=== PATIENT | male | born 1950 | race Caucasian/White ===

== ENCOUNTER → 2017-12-21 | Outpatient (CLI) | payer BC ==
[~2017-12-21] VITALS: Ht 177.8 cm; Wt 61.2 kg
[~2017-12-21] MED LIST: ARNUITY ELLIPT50 MCG INH; ATORVASTATIN CA40 MG PO; COREG25 M1 PO; COUMADIN7.5 MG PO; IMDUR 30 MG TAB30 M1 PO; KEFLEX500 M1 PO; LISINOPRIL10 MG PO; STIOLTO RESPIMAT4 GM INH
[2017-12-21 08:51] LABS: HEMATOCRIT 49.3 % (42.0-52.0); HEMOGLOBIN 16.4 gm/dL (14.0-18.0); MCHC 33.2 g/dL (28.0-37.0); MCV 93.5 fL (80.0-100.0); MPV 8.7 fl. (7.2-11.1); RBC 5.27 mil/uL (4.50-6.00); RDW-CV 14.7 % (10.5-14.5); WBC 5.7 thou/uL (4.0-11.0)
[2017-12-21 08:56] VITALS: BP 124/76
[2017-12-21 09:16] LABS: APTT 45.7 Seconds (25.0-31.3); PROTIME 30.9 Seconds (9.20-11.50)
[2017-12-21 09:17] LABS: ANION GAP 1 mmol/L (7-16); BUN 8 mg/dL (7-18); CALCIUM 8.5 mg/dL (8.5-10.1); CHLORIDE 99 mmol/L (98-107); CO2 33 mmol/L (21-32); CREATININE 0.7 mg/dL (0.6-1.3); GLUCOSE 87 mg/dL (70-99); POTASSIUM 4.3 mmol/L (3.5-5.1); SODIUM 133 mmol/L (136-145)
[2017-12-21 09:22] LABS: ALBUMIN 3.7 g/dL (3.4-5.0); ALKALINE PHOSPHATASE 82 U/L (46-116); CHOLESTEROL 144 mg/dL (<200); HDL CHOLESTEROL 66 mg/dL (>40); LDL CHOLESTEROL 71 mg/dL (<100); SGOT 28 U/L (15-37); SGPT 35 U/L (30-65); TC:HDL 2.2 Ratio (Not establshd); TOTAL BILIRUBIN 0.4 mg/dL (<0.1-1.0); TOTAL PROTEIN 7.3 g/dL (6.4-8.2); TRIGLYCERIDE 36 mg/dL (<150); VLDL 7 mg/dL (<40)
[2017-12-21 09:23] LABS: SERUM ASSESSMENT Clear
[2017-12-21 10:30] VITALS: BP 119/75
[2017-12-21 10:45] VITALS: BP 129/75
[2017-12-21 11:00] VITALS: BP 129/70
[2017-12-21 11:15] VITALS: BP 130/69
--- NOTE | 2017-12-21 17:29 | EKG ---
[place] [address] ELECTROCARDIOGRAM REPORT Name: ROLAND PERKINS Room: [facility]#: [id number] Admission: 12/21/17 Attend Phys: Montana Villa MD Discharge: Date of : 54 Report #: [id number] THIS REPORT FOR: //name// [facility] Test Date: 2017-12-21 Test Time: 09:02:58 Pat Name: ROLAND PERKINS Department: Room: Gender: M Manager Quantitative: : 1950 Requested By: Montana Villa Order Number: [id number] Reading MD: Roland Murray Measurements Intervals [place] Rate: 66 P: 32 AK: 150 QRS: 47 QRSD: 103 T: -81 QT: 422 QTc: 443 Interpretive Statements Sinus rhythm Probable left ventricular hypertrophy Nonspecific T abnormalities, lateral leads No previous ECG available for comparison Electronically Signed On 12-21-2017 17:29:31 CDT by Roland Murray [email or web address] <ELECTRONICALLY SIGNED> By: Roland Murray MD, [facility] 12/21/17 1729 09 1 Roland Murray MD, FACC /EPI
--- NOTE | 2017-12-28 11:41 | CARD ---
[address] [address] CARDIAC CATH REPORT Name: MARIA DE JESUS PERKINS Room: [facility]#: [id number] Admission: 12/21/17 Attend Phys: Montana Villa MD Discharge: Date of : 54 Report #: [id number] THIS REPORT FOR: //name// APPROVED REPORT Study performed: 12/21/2017 09:04:05 Patient Status: Out-Patient Room #: Exam: dual-chamber ICD generator change. Indications: dual-chamber ICD generator at elective replacement. The patient is a 67 year-old male with a history of ischemic cardiomyopathy status post ICD placement for primary prevention. Patient Info Last EF%: 30-35% Date: NYHA Heart Class: II Reason for implant: Primary prevention Implanted Devices: Biotronik Itrevia 7 DRT DF1, model #245773, serial #[id number] dual-chamber ICD pulse generator Explanted Devices: Medtronic Virtuoso 2 , model number D274 DRG, serial number [id number] dual-chamber ICD generator. Procedure After informed consent was obtained the patient was brought to the interventional radiology lab. The area of the right chest was prepped and draped in sterile fashion. Local anesthesia was achieved with 1% lidocaine. Next after an incision was made over the existing generator the generator was explanted using electrocautery and blunt dissection. The device was detached from the ICD ventricular and atrial lead. The device pocket was flushed with antibiotic solution. Next a new dual-chamber ICD lead was attached to the atrial and pacing ICD ventricular leads. The redundant leads and generator were placed within the device pocket. The deep tissues were closed with interrupted stitches of 2-0 Vicryl. The skin incision was then closed with a single subcuticular stitch of 4-0 Vicryl. Several Steri-Strips were placed across the incision. A sterile Telfa dressing was then covered with Tegaderm. The patient tolerated procedure well [place] [address] CARDIAC CATH REPORT Name: MARIA DE JESUS PERKINS Room: [facility]#: [id number] Admission: 12/21/17 Attend Phys: Montana Villa MD Discharge: Date of : 54 Report #: [id number] Slow VT detection rate 154 bpm, fast VT detection rate 176 bpm and VF detection rate to 222 bpm. Slow VF therapy monitor only. Fast VT therapy antitachycardia pacing 6 followed by 40 J shock times a day. VF therapy antitachycardia pacing times one followed by 40 J shock 8. Pacing mode AAIR. Lower rate 60 bpm. Upper tracking rate 130 bpm. Conclusion 1. Ischemic cardiomyopathy. 2. ICD in situ and at elective replacement. 3. Successful ICD generator replacement. Recommendations 1. Follow-up site check in one week. 2. Follow-up ICD interrogation one month. <ELECTRONICALLY SIGNED> By: Montana Villa MD, FACC 12/28/17 1141 1141 1141Michaefrankie Villa MD, FACC /INF
--- NOTE | 2017-12-28 17:20 | H ---
[place] [address] HISTORY AND PHYSICAL Name: MARIA DE JESUS PERKINS Room: [facility]#: [id number] Admission: 12/21/17 Attend Phys: Montana Villa MD Discharge: Date of : 54 Report #: [id number] THIS REPORT FOR: //name// CC: Maria De Jesus Murray MD [facility] Tia Villa INDICATION: Admission for ICD generator change. HISTORY OF PRESENT ILLNESS: The patient is a pleasant 67-year-old gentleman with ischemic cardiomyopathy. He had a defibrillator placed for primary prevention. His ICD has reached elective replacement. He is without specific cardiac complaint at this time. PAST MEDICAL HISTORY: 1. Bradycardia. 2. Congestive heart failure. 3. Chronic obstructive pulmonary disease. 4. Coronary artery disease. 5. Ischemic cardiomyopathy. 6. History of cerebrovascular accident. 7. Protein C deficiency. 8. Chronic systolic heart failure. PAST SURGICAL HISTORY: Defibrillator placement in 2011. FAMILY HISTORY: Noncontributory. SOCIAL HISTORY: The patient quit smoking in 2017. He does not drink alcohol. ALLERGIES: SULFA. CURRENT MEDICATIONS: Atorvastatin, carvedilol, Advair, Imdur, Prinivil, warfarin. PHYSICAL EXAMINATION: VITAL SIGNS: Blood pressure 118/78, pulse 77. GENERAL: This is a pleasant gentleman who is in no distress. HEAD: Normocephalic, atraumatic. Extraocular muscles intact. Mucous membranes moist. NECK: Shows no jugular venous distention. There are no carotid bruits. CHEST: Reveals clear lung diamond. CARDIAC: Reveals regular rhythm without gallop or murmur. ABDOMEN: Reveals normal bowel sounds. The abdomen is soft, nontender. EXTREMITIES: Shows no clubbing, cyanosis or edema. Peripheral pulses palpable ____. [place] [address] HISTORY AND PHYSICAL Name: MARIA DE JESUS PERKINS Room: [facility]#: [id number] Admission: 12/21/17 Attend Phys: Montana Villa MD Discharge: Date of : 54 Report #: [id number] SKIN: Warm and dry. IMPRESSION AND RECOMMENDATIONS: 1. Ischemic cardiomyopathy, presently well compensated. 2. Status post ICD placement for primary prevention. ICD generator elective replacement. The patient is being admitted for ICD generator change. 3. Coronary artery disease, presently stable. 4. Stable carotid vascular disease. 5. History of protein C deficiency. 6. Hyperlipidemia. Continue statin agent. <ELECTRONICALLY SIGNED> By: Montana Villa MD, FACC 12/28/17 1720 1127 [facility] Sera Villa MD, FACC /nt
== END | disposition home or self-care (01) ==
LOC: M.CL 08:29
PROVIDERS: Internal Medicine Cardiovascular Disease
DX: Z45.02 Encounter for adjustment and management of automatic implantable cardiac defibrillator (principal); I25.5 Ischemic cardiomyopathy; I50.22 Chronic systolic (congestive) heart failure; I25.10 Atherosclerotic heart disease of native coronary artery without angina pectoris; E78.5 Hyperlipidemia, unspecified; J44.9 Chronic obstructive pulmonary disease, unspecified; Z87.891 Personal history of nicotine dependence; Z79.01 Long term (current) use of anticoagulants; Z79.899 Other long term (current) drug therapy; Z88.2 Allergy status to sulfonamides; Z95.1 Presence of aortocoronary bypass graft; Z98.890 Other specified postprocedural states; Z82.49 Family history of ischemic heart disease and other diseases of the circulatory system

== ENCOUNTER 2019-07-19 07:17 | Inpatient (IN) | payer OTHER ==
[~2019-07-19] VITALS: Ht 180.3 cm; Wt 78.6 kg
[~2019-07-19 07:17] MED LIST changes: -ATORVASTATIN CA40 MG PO; -COREG25 M1 PO; +COREG6.25 MG PO; +COUMADIN 5 MG TA5 M1 PO; -COUMADIN7.5 MG PO; +LIPITOR80 MG PO
[2019-07-19 09:36] VITALS: BP 113/61
[2019-07-19 10:39] LABS: INR 2.9; PROTIME 28.6 Seconds (9.20-11.50)
[2019-07-19 10:44] LABS: CALCIUM 8.9 mg/dL (8.5-10.1); CREATININE 0.7 mg/dL (0.6-1.3); POTASSIUM 4.3 mmol/L (3.5-5.1)
[2019-07-19 10:49] LABS: ALBUMIN 3.4 g/dL (3.4-5.0); DIRECT BILIRUBIN 0.1 mg/dL (<0.1-0.3); TOTAL BILIRUBIN 0.4 mg/dL (<0.1-1.0); TOTAL PROTEIN 6.8 g/dL (6.4-8.2)
[2019-07-19 12:00] VITALS: BP 104/68
--- NOTE | 2019-07-19 15:39 | EKG ---
[place] [address] ELECTROCARDIOGRAM REPORT Name: ROLAND PERKINS Room: [address] ADM IN ..#: [id number] Admission: 07/19/19 Attend Phys: Roland Murray MD Discharge: Date of : 54 Date of Service: 07/19/19 [facility] Report #: [id number] THIS REPORT FOR: //name// [facility] Test Date: 2019-07-19 Test Time: 10:07:27 Pat Name: ROLAND PERKINS Department: Room: [address] Gender: M Design Checker: : 1950 Requested By: Roladn Murray Order Number: [id number] Reading MD: Roland Murray Measurements Intervals [place] Rate: 97 P: 20 CO: 158 QRS: 14 QRSD: 121 T: QT: 390 QTc: 496 Interpretive Statements Sinus arrhythmia and pac's Paired ventricular premature complexes Nonspecific intraventricular conduction delay Nonspecific T abnormalities, lateral leads Compared to ECG 12/21/2017 09:02:58 Ventricular and supraventricular premature complex(es) now present T-wave abnormality still present Electronically Signed On 07-19-2019 15:37:25 CDT by Roland Murray [email or web address] <ELECTRONICALLY SIGNED> By: Roland Murray MD, FACC 07/19/19 1537 1007 1007 Roland Murray MD, FAC /EPI
--- NOTE | 2019-07-19 16:55 | H ---
[place] [address] HISTORY AND PHYSICAL Name: ROLAND PERKINS Room: [address] IN ..#: [id number] Admission: 07/19/19 Attend Phys: Roland Murray MD, F Discharge: Date of : 54 Report #: [id number] THIS REPORT FOR: //name// cc: Tia Saha MD, Melanie MD ~ THIS REPORT FOR: //name// CC: Roland Saha MD DATE OF SERVICE: 07/19/2019 CARDIOLOGY HISTORY AND PHYSICAL PRIMARY CARE PHYSICIAN: Tia Saha MD in [place], [place]. HISTORY OF PRESENT ILLNESS: The patient is a 69-year-old white male who was electively admitted today to [facility] for initiation of amiodarone therapy. The patient has a long history of an ischemic cardiomyopathy. He previously had a myocardial infarction treated with balloon angioplasty at [facility] years ago. His last nuclear stress test a year ago showed a fixed defect, but no reversible ischemia. The patient's last echocardiogram showed an ejection fraction of 30%. Because of his ischemic cardiomyopathy, he eventually underwent implantation of defibrillator by Dr. Mathews at [facility] years ago. Unfortunately, at the time of the placement of the defibrillator, he developed pericardial tamponade and had a pericardial window placed. He underwent a generator change by Dr. Villa several years ago at [facility]. He apparently has never had a discharge of his defibrillator, which was checked by phone. He has a history of atrial fibrillation in the past, but apparently was never cardioverted. He was on sotalol in the past, which was discontinued because of congestive heart failure. The patient was actually admitted to [facility] this past year with retroperitoneal bleed when his INR was 3.7. The patient was last admitted in May of this year with shortness of breath. Recently, the patient complained of his heart pounding. Interrogation of his defibrillator showed episodes of a narrow complex tachycardia suggestive of atrial flutter at 160 beats per minute. It was recommended the patient be admitted this time for initiation of amiodarone therapy. He denies any increased shortness of breath, orthopnea, edema. He does occasionally have chest pain, although it is nonexertional and does not last very long. There is no radiation of the pain. He has had no bleeding. He has had no syncope, fever, or chronic cough. PAST MEDICAL HISTORY: Otherwise significant for protein C deficiency. He had a previous TIA. Previous carotid Doppler study showed mild stenosis. He has a history [place] [address] HISTORY AND PHYSICAL Name: ROLAND PERKINS Room: [address] IN [facility]#: [id number] Admission: 07/19/19 Attend Phys: Roland Murray MD, F Discharge: Date of : 54 Report #: [id number] CURRENT MEDICATIONS: Consist of an inhaler, Lipitor, Entresto, spironolactone, warfarin. ALLERGIES: HE HAS ALLERGY TO PENICILLIN AND SULFA DRUGS. FAMILY HISTORY: His mother had heart disease. SOCIAL HISTORY: He is . He and his live in [place], [place]. Used to smoke 3 packs of cigarettes a day, quit in February. No alcohol abuse, no illicit drug use. REVIEW OF SYSTEMS: No history of liver disease, kidney disease or cancer. He has dry skin. No psychiatric illness. PHYSICAL EXAMINATION: GENERAL: Revealed a middle-aged male, appeared in no distress. VITAL SIGNS: Blood pressure 110/60, pulse is 60. He is afebrile. HEENT: He was anicteric. Conjunctivae pink. Mucous membranes moist. NECK: Veins nondistended. No carotid bruits. Neck supple. CHEST: Revealed expiratory wheezes. CARDIOVASCULAR: Regular rate and rhythm, no murmur. ABDOMEN: Soft. EXTREMITIES: Had no edema. Dorsalis pedis pulse 2+ bilaterally. SKIN: Warm and dry. NEUROLOGIC: Nonfocal. LABORATORY DATA: His ECG, sinus rhythm, occasional atrial paced beats, PVC. IMPRESSION AND RECOMMENDATIONS: 1. Paroxysmal atrial arrhythmias. The patient was taken off of sotalol because of shortness of breath. Recommend starting amiodarone. 2. Cardiomyopathy. The patient is on Entresto. I would recommend adding Coreg. 3. Previous transient ischemic attack. 4. Protein C deficiency. The patient on warfarin, I would continue, maintain INR of 2-3. 5. Hyperlipidemia. The patient is on a statin drug. 6. Previous implantation of defibrillator. No recent discharges. 7. Previous tobacco abuse. 8. Chronic obstructive pulmonary disease. <ELECTRONICALLY SIGNED> By: oRland Murray MD, FACC 07/19/19 1655 0959 1039Davipatrice Murray MD, [facility] /nt
[2019-07-19 20:21] VITALS: BP 107/73
[2019-07-20] VITALS: BP 112/72
[2019-07-20 04:00] VITALS: BP 118/63
[2019-07-20 05:29] LABS: HEMATOCRIT 45.3 % (42.0-52.0); HEMOGLOBIN 15.2 gm/dL (14.0-18.0); MCH 30.4 pg (26.0-34.0); MCHC 33.6 g/dL (28.0-37.0); MCV 90.4 fL (80.0-100.0); MPV 9.4 fl. (7.2-11.1); NUCLEATED RBCS 0 /100WBC; PLATELET COUNT* 139 thou/uL (150-400); RBC 5.01 mil/uL (4.50-6.00)
[2019-07-20 05:35] LABS: INR 2.8; PROTIME 27.8 Seconds (9.20-11.50)
[2019-07-20 05:38] LABS: CHOLESTEROL 138 mg/dL (<200); HDL CHOLESTEROL 57 mg/dL (>40); LDL CHOLESTEROL 72 mg/dL (<100); TC:HDL 2.4 Ratio (Not establshd); TRIGLYCERIDE 47 mg/dL (<150); VLDL 9 mg/dL (<40)
[2019-07-20 05:45] LABS: SERUM ASSESSMENT CLEAR
[2019-07-20 07:05] LABS: ABSOLUTE BASOPHILS 0.1 thou/uL (0.0-0.2); ABSOLUTE EOSINOPHILS 0.6 thou/uL (0.0-0.7); ABSOLUTE LYMPHOCYTES 2.4 thou/uL (0.8-5.3); ABSOLUTE MONOCYTES 0.4 thou/uL (0.0-1.2); ABSOLUTE NEUTROPHILS 2.5 thou/uL (1.6-8.1); ATYPICAL LYMPHS 6 %; PLATELET ESTIMATE ADEQUATE
[2019-07-20 07:47] VITALS: BP 109/66
[2019-07-20 12:19] VITALS: BP 94/52
--- NOTE | 2019-07-20 13:30 | EKG ---
[place] [address] ELECTROCARDIOGRAM REPORT Name: ROLAND PERKINS Room: [address] ADM IN [facility].#: [id number] Admission: 07/19/19 Attend Phys: Roland Murray MD Discharge: Date of : 54 Date of Service: 07/20/19 0856 Report #: [id number] THIS REPORT FOR: //name// [facility] Test Date: 2019-07-20 Test Time: 08:56:54 Pat Name: ROLAND PERKINS Department: Room: [address] Gender: M Supervisor Real Estate Office: : 1950 Requested By: Roland Murray Order Number: [id number] Reading MD: Roland Murray Measurements Intervals [place] Rate: 73 P: 53 [place]: 155 QRS: 48 QRSD: 95 T: QT: 428 QTc: 472 Interpretive Statements Sinus rhythm Probable left atrial enlargement Borderline T abnormalities, inferior leads Baseline wander in lead(s) V1 Compared to ECG 07/19/2019 10:07:27 Sinus arrhythmia no longer present Ventricular premature complex(es) no longer present Electronically Signed On 07-20-2019 13:29:11 CDT by Roland Murray [email or web address] <ELECTRONICALLY SIGNED> By: Roland Murray MD, FAC 07/20/19 1329 0856 0856 Roland Murray MD, FAC /EPI
--- NOTE | 2019-07-20 14:55 | 2DMMODE ---
[place] [address] 2 D/M-MODE ECHOCARDIOGRAM Name: MARIA DE JESUS PERKINS Room: [address] IN .[place].#: [id number] Admission: 07/19/19 Attend Phys: Maria De Jesus Murray MD Discharge: Date of : 54 Date of Service: 07/20/19 1454 Report #: [id number] THIS REPORT FOR: cc: Tia Saha MD, Melanie MD Blick, David R. MD [facility] ~ APPROVED REPORT Study performed: 07/20/2019 13:21:27 EXAM: Comprehensive 2D, Doppler, and color-flow Echocardiogram Patient Location: In-Patient Room #: [facility] Status: routine BSA: 1.99 HR: 76 bpm BP: 109/66 mmHg Rhythm: NSR Other Information Study Quality: Good Indications Atrial Fibrillation 2D Dimensions IVSd: 9.98 (7-11mm) LVOT Diam: 22.07 (18-24mm) LVDd: 61.75 mm PWd: 9.14 (7-11mm) Ascending Ao: 35.05 (22-36mm) LVDs: 54.50 (25-40mm) Aortic Root: 34.79 mm Volumes Left Atrial Volume (Systole) LA ESV Index: 31.00 mL/m2 Aortic Valve AoV Peak Akash.: 1.27 m/s AO Peak Gr.: 6.46 mmHg LVOT Max P.70 mmHg AO Mean Gr.: 3.47 mmHg LVOT Mean P.79 mmHg LVOT Max V: 0.65 m/s AO V2 VTI: 22.01 cm LVOT Mean V: 0.40 m/s PHYLLIS (VTI): 2.24 cm2 LVOT V1 VTI: 12.89 [place] [address] 2 D/M-MODE ECHOCARDIOGRAM Name: MARIA DE JESUS PERKINS Room: [address] IN ..#: [id number] Admission: 07/19/19 Attend Phys: Maria De Jesus Murray MD Discharge: Date of : 54 Date of Service: 07/20/19 1454 Report #: [id number] Mitral Valve E/A Ratio: 1.41 MV Decel. Time: 186.78 ms MV E Max Akash.: 0.89 m/s MV PHT: 54.17 ms MVA (PHT): 4.06 cm2 TDI E/Lateral E': 12.71 E/Medial E': 9.89 Medial E' Akash.: 0.09 m/s Lateral E' Akash.: 0.07 m/s Pulmonary Valve PV Peak Akash.: 0.71 m/s PV Peak Gr.: 1.99 mmHg Tricuspid Valve RAP Estimate: 5.00 mmHg TR Peak Gr.: 30.13 mmHg RVSP: 35.00 mmHg PA Pressure: 35.00 mmHg Left Ventricle Left ventricle is mildly dilated. There is global hypokinesis of the left ventricle. There is normal left ventricular wall thickness. Left ventricular systolic function is severely decreased. LVEF is 25-30%. Grade IV - fixed restrictive diastolic dysfunction. Right Ventricle Right ventricle is dilated. The right ventricular systolic function is normal. Pacemaker lead is present in the right ventricle. Atria Left atrium is mildly dilated. Right atrium is dilated. Aortic Valve The aortic valve is normal in structure. No aortic regurgitation is present. There is no aortic valvular stenosis. Mitral Valve The mitral valve is normal in structure. Mild mitral regurgitation. No evidence of mitral valve stenosis. Tricuspid Valve The tricuspid valve is normal in structure. Trace tricuspid regurgitation. estimated pa pressure 45 [place] [address] 2 D/M-MODE ECHOCARDIOGRAM Name: MARIA DE JESUS PERKINS Room: [address] IN [facility]#: [id number] Admission: 07/19/19 Attend Phys: Maria De Jesus Murray MD Discharge: Date of : 54 Date of Service: 07/20/19 1454 Report #: [id number] Pulmonic valve is not well visualized. There is trace pulmonic valvular regurgitation. Great Vessels The aortic root is normal in size. IVC is normal in size and collapses >50% with inspiration. Pericardium There is no pericardial effusion. <Conclusion> Left ventricle is mildly dilated. LVEF is 25-30%. Left atrium is mildly dilated. Mild mitral regurgitation. Trace tricuspid regurgitation. estimated pa pressure 45 mm Hg <ELECTRONICALLY SIGNED> By: Maria De Jesus Murray MD, FACC 07/20/19 1454 1454 1454 Maria De Jesus Murray MD, FACC /INF
[2019-07-20 16:38] VITALS: BP 99/68
[2019-07-20 20:00] VITALS: BP 139/86
[2019-07-21] VITALS: BP 115/77
[2019-07-21 03:50] VITALS: BP 115/68
[2019-07-21 05:07] LABS: INR 1.7; PROTIME 16.8 Seconds (9.20-11.50)
[2019-07-21 08:00] VITALS: BP 117/71
--- NOTE | 2019-07-21 10:59 | EKG ---
[place] [address] ELECTROCARDIOGRAM REPORT Name: ROLAND PERKINS Room: [address] ADM IN [facility].#: [id number] Admission: 07/19/19 Attend Phys: Roland Murray MD Discharge: Date of : 54 Date of Service: 07/21/19 0838 Report #: [id number] THIS REPORT FOR: //name// [facility] Test Date: 2019-07-21 Test Time: 08:38:15 Pat Name: ROLAND PERKINS Department: Room: [address] Gender: M Housekeeper Manager: : 1950 Requested By: Roland Murray Order Number: [id number] Reading MD: Roland Murray Measurements Intervals [place] Rate: 78 P: 38 [place]: 174 QRS: 52 QRSD: 109 T: 64 QT: 415 QTc: 473 Interpretive Statements Sinus rhythm Ventricular premature complex Probable left atrial enlargement Borderline T wave abnormalities Baseline wander in lead(s) V1,V2 Compared to ECG 07/20/2019 08:56:54 Ventricular premature complex(es) now present T-wave abnormality still present Electronically Signed On 07-21-2019 10:57:44 CDT by Roland Murray [email or web address] <ELECTRONICALLY SIGNED> By: Roland Murray MD, FACC 07/21/19 1057 7 7 Roland Murray MD, [facility] /EPI
[2019-07-21] MEDS ORDERED: ENTRESTO 24 MG1 EACH PO (12:24)
[2019-07-21] MEDS ORDERED: SPIRONOLACTONE25 MG PO (12:25)
[2019-07-21] MEDS ORDERED: PACERONE200 MG PO (12:30)
[2019-07-21 12:32] VITALS: BP 115/68
--- NOTE | 2019-07-21 15:17 | D ---
[address] [address] DISCHARGE SUMMARY Name: MARIA DE JESUS PERKINS Room: [address] IN M.R.#: [id number] Admission: 07/19/19 Attend Phys: Maria De Jesus Murray MD, F Discharge: 07/21/19 Date of : 54 Report #: [id number] THIS REPORT FOR: //name// cc: Tia Saha MD, Melanie MD ~ THIS REPORT FOR: //name// CC: Maria De Jesus Saha MD DATE OF SERVICE: 07/21/2019 DISCHARGE DIAGNOSES: 1. Atrial arrhythmias. 2. Chronic systolic heart failure. 3. Coronary artery disease. 4. Protein C deficiency. 5. Hyperlipidemia. 6. Chronic obstructive pulmonary disease. 7. Previous tobacco abuse. CONSULTANTS: None. PROCEDURES: None HISTORY OF PRESENT ILLNESS: The patient is a 69-year-old white male who was admitted for initiation of amiodarone therapy. The patient apparently had a myocardial infarction treated with balloon angioplasty at [facility] many years ago. His last nuclear stress test a year ago showed a fixed defect, but no reversible ischemia. His last echocardiogram showed an ejection fraction of 30%. Because of his ischemic cardiomyopathy, he eventually underwent implantation of defibrillator by Dr. Mathews. He underwent a generator change 2 years ago. He has never had a discharge of his defibrillator, which was checked from home. He has a history of atrial fibrillation in the past, but never was cardioverted. He was on sotalol in the past. He was admitted to [facility] this May with retroperitoneal bleed. His INR was 3.7. He was taken apparently off the sotalol because of shortness of breath. Interrogation of his defibrillator recently showed episodes of a tachycardia that appeared to be narrow complex at 280 beats per minute consistent with atrial flutter. It is recommended that the patient be admitted this time for initiation of amiodarone therapy. He denied any recent increased shortness of breath, chest pain, edema or bleeding. PAST MEDICAL HISTORY: Significant for protein C deficiency. He [place] [address] DISCHARGE SUMMARY Name: MARIA DE JESUS PERKINS Room: [address]#: [id number] Admission: 07/19/19 Attend Phys: Maria De Jesus Murray MD, F Discharge: 07/21/19 Date of : 54 Report #: [id number] CURRENT MEDICATIONS: Consist of ProAir inhaler, atorvastatin, Entresto, spironolactone, warfarin. ALLERGIES: HE HAS ALLERGY TO PENICILLIN. PHYSICAL EXAMINATION: GENERAL: Revealed an elderly male, appeared in no acute distress. VITAL SIGNS: He had a blood pressure of 120/60, pulse 60. He was afebrile. HEENT: He is anicteric. Conjunctivae anicteric. LUNGS: He had expiratory wheezes. CARDIAC: Regular rate and rhythm. ABDOMEN: Soft. EXTREMITIES: Had no edema. SKIN: Cool and dry. DIAGNOSIS STUDIES: His ECG on admission showed a sinus rhythm, occasional PAC and PVC, nonspecific T-wave changes. He had an echocardiogram during his hospitalization that showed an ejection fraction of 30%. His x-rays showed cardiomegaly, defibrillator in place, some interstitial fibrosis noted. LABORATORY DATA: His lab work, sodium 137, potassium 4.3, creatinine 0.7, glucose 91. Liver function studies were normal. Cholesterol 138, triglyceride 47, HDL 57, LDL 72. TSH 1.5. His INR on admission was 2.9. White blood cell count 6.0, hemoglobin 15.2. HOSPITAL COURSE: The patient was admitted to a monitored bed. He was started on amiodarone 600 mg to take every 12 hours. He had no significant complaints at this time. At the time of discharge, the patient is ambulating, had no further complaints. His vital signs at time of discharge, he had a blood pressure of 110/70, pulse 60. On the monitor, he remained in sinus rhythm, occasional PVC. There were episodes of atrial paced beats noted. He was discharged on amiodarone 400 mg twice a day for 2 weeks. He was then to decrease the dose to 400 mg once a day. He was to continue Lipitor and he was taking 80 mg a day. Since he is no longer on sotalol, he was started back on carvedilol 6.25 mg twice a day, Flonase nasal spray, AeroBid treatments. He was taken off of isosorbide. He was to continue Entresto twice a day, spironolactone 25 mg a day, warfarin was decreased to 5 mg a day. He was to check his INR at home every 2 days. Maintain an INR of 2-3. He was discharged to return to care of Dr. Saha for routine medical care. He continues to be seen in the pulmonary clinic. I plan on seeing him in Cardiology Clinic in [place] on 09/06/2019. His prognosis is guarded due to his ischemic cardiomyopathy. He will continue to have [place] [address] DISCHARGE SUMMARY Name: MADDIE,MARIA DE JESUS Mcgregor Room: [address] IN [facility]#: [id number] Admission: 07/19/19 Attend Phys: Maria De Jesus Murray MD, F Discharge: 07/21/19 Date of : 54 Report #: [id number] with his transmitter. I did recommend he start an exercise program and refrain from smoking. <ELECTRONICALLY SIGNED> By: Maria De Jesus Murray MD, FACC 07/21/19 1517 1131 [id number] Murray MD, FACC /nt
== END 2019-07-21 13:14 | disposition home or self-care (01) | DRG 309 ==
LOC: M.2W 07:17
PROVIDERS: ADMIT Internal Medicine Cardiovascular Disease
DX: I48.0 Paroxysmal atrial fibrillation (principal); D68.59 Other primary thrombophilia; I50.22 Chronic systolic (congestive) heart failure; I42.9 Cardiomyopathy, unspecified; I25.10 Atherosclerotic heart disease of native coronary artery without angina pectoris; E54 Ascorbic acid deficiency; E78.5 Hyperlipidemia, unspecified; J44.9 Chronic obstructive pulmonary disease, unspecified; Z87.891 Personal history of nicotine dependence; Z95.810 Presence of automatic (implantable) cardiac defibrillator; Z79.899 Other long term (current) drug therapy; I25.2 Old myocardial infarction; Z86.73 Personal history of transient ischemic attack (TIA), and cerebral infarction without residual deficits

== ENCOUNTER → 2020-09-18 | Outpatient (CLI) | payer OTHER ==
[~2020-09-18] MED LIST changes: +ENTRESTO 24 MG1 EACH PO; +PACERONE200 MG PO; +SPIRONOLACTONE25 MG PO
[2020-09-18 13:28] LABS: ALBUMIN 3.9 g/dL (3.4-5.0); CREATININE 0.8 mg/dL (0.6-1.3); POTASSIUM 4.2 mmol/L (3.5-5.1); TOTAL BILIRUBIN 0.5 mg/dL (<0.1-1.0); TOTAL PROTEIN 7.4 g/dL (6.4-8.2)
== END ==
LOC: M.LAB 12:25
PROVIDERS: ATTEND Nurse Practitioner
DX: I48.0 Paroxysmal atrial fibrillation (principal); Z79.899 Other long term (current) drug therapy